=== PATIENT | male | born 1975 | race Hispanic/Latino ===

== ENCOUNTER 2019-08-27 15:30 | Outpatient (CLI) | payer SELFPAY ==
--- NOTE | 2019-08-27 16:15 | RAD ---
Exam:Left tibia fibula 2 views HISTORY: Lateral ulcer due to injury COMPARISON: None FINDINGS: Soft tissue ulcer is noted. There appear to be calcifications in the lateral soft tissues. There is bony mineralization and erosion involving the midportion of the fibula suggesting osteomyelitis. IMPRESSION: Soft tissue ulceration. Probable osteomyelitis involving the midportion of the fibula.
== END 2019-08-27 15:31 | disposition home or self-care (01) ==
LOC: SCSRAD 15:30
PROVIDERS: ATTEND Internal Medicine
DX: L97.929 Non-pressure chronic ulcer of unspecified part of left lower leg with unspecified severity (principal)